=== PATIENT | male | born 1950 | race Two or more races ===

== ENCOUNTER 2023-11-01 13:43 | Emergency (ER) | payer OTHER, SELFPAY ==
[2023-11-01 13:46] VITALS: BP 154/74
--- NOTE | 2023-11-01 14:43 | ED.GENMED ---
History of Present Illness
General
Chief Complaint: Change in Mental Status
Source: patient
Time Seen by Provider: 11/01/23 14:27
History of Present Illness
History of Present Illness:
73yoM with a history of coronary artery disease s/p PCI, hypertension, hyperlipidemia, and type 2 diabetes presenting with his and son for evaluation of altered mental status. states that he has been irritable and angry over the past
several days. He started to become forgetful this morning. states that he forgot where his glasses were. At another point, patient put on his pants but then took them off and stated that the pants did not belong to him. He had a fall around
10 AM this morning on the steps. Fall was witnessed by who states that he struck his head. No reported loss of consciousness. Patient has been complaining of left-sided chest discomfort since the fall. states he had similar symptoms
about 1 to 2 months ago. He was seen at a hospital in [facility] at that time and was diagnosed with pneumonia. He underwent MRI brain which revealed age-related cortical atrophy as well as bilateral lacunar infarcts.
Phy Exam
General Physical Exam
General Presentation: well appearing and no apparent distress
General age: appears stated age
General Skin: warm and dry
General Habitus: normal
ENT Exam
ENT Exam: normocephalic (No external signs of head trauma. No cervical spine tenderness. )
Eye Exam
Eye Exam: PERRL
Cardiovascular Exam
Cardiovascular Exam: regular rate/rhythm
Pulmonary Exam
Pulmonary Exam: lungs clear, no respiratory distress, no crackles, no wheezing and other (+L sided chest wall tenderness. No crepitus or skin changes.)
Gastrointestinal Exam
Gastrointestinal Exam: non tender, soft and non distended
Neurological Exam
Neurological Exam: alert, no motor deficits and other (Oriented to person, place, time. )
Melvin Coma Scale
Eye Opening: Spontaneous
Verbal Response: Oriented
Motor Response: Obeys Commands
GCS Total Score: 15
Course
Orders/Labs/Results
Orders:
Orders
11/01/23 13:52
EKG [Electrocardiogram (*1)] Urgent
Reason for Study: Chest Pain
11/01/23 13:53
EKG- Treatment ONCE
11/01/23 14:42
CT Cervical Spine W/o Iv Contr Urgent
Comment:
Reason For Exam: Fall, AMS
CT Chest W/o Iv Contrast Urgent
Comment:
Reason For Exam: Fall, L sided chest pain
CT Head W/o Iv Contrast Urgent
Comment:
Reason For Exam: AMS, fall
11/01/23 14:47
Complete Blood Count/With Diff Urgent
Comprehensive Metabolic Panel Urgent
Free T4 Urgent
PTT Urgent
Prothrombin Time Urgent
TSH Reflex To Free T4 Urgent
Troponin I Urgent
11/01/23 16:08
Urinalysis Reflex To Culture Urgent
Date Specimen was Collected: 11/01/23
Time Specimen was Collected: 15:59
11/01/23 17:03
Acetaminophen [Tylenol] 1,000 mg PO NOW STA
Incentive Spirometry [Rx Incentive Spirometry] [RESP] Urgent
Frequency: q1h while awake
11/01/23 17:15
Lidocaine [Lidocaine 4% Patch] 1 patch TOPICAL DAILY
Apply Lidocaine patch(s) to:: L ribcage
Abnormal Lab Results
11/01/23
14:47
RBC 3.42 L 10^6/uL
(4.70-6.10)
Hgb 9.0 L g/dL
(13.0-18.0)
Hct 28.5 L %
(39.0-52.0)
MCH 26.3 L pg
(27.0-31.0)
MCHC 31.6 L g/dL
(33.0-37.0)
RDW 15.0 H %
(11.5-14.5)
Monocytes % 10.5 H %
(1.7-9.3)
Sodium 134 L mmol/L
(135-145)
Glucose 127 H mg/dl
(70-99)
Calcium 10.3 H mg/dl
(8.4-10.2)
TSH (Reflex) 0.39 L uIU/ml
(0.47-4.68)
11/01/23 14:47
11/01/23 14:47
Vital Signs
Initial and Last Documented VS:
Initial Vital Signs
Temp Pulse Resp BP Pulse Ox
98.9 F 68 18 154/74 100
11/01/23 13:46 11/01/23 13:46 11/01/23 13:46 11/01/23 13:46 11/01/23 13:46
Last Documented Vital Signs
Temp Pulse Resp BP Pulse Ox
98.9 F 71 12 159/73 100
11/01/23 13:46 11/01/23 17:00 11/01/23 17:00 11/01/23 17:00 11/01/23 15:45
MDM/Problems Addressed
Differential Diagnosis Includes:
73yoM presenting for memory loss that started this morning. Had a fall down steps this morning and now c/o L rib pain. +head strike but no LOC or headache. Patient is afebrile and hemodynamically stable. He is awake and alert with a GCS of 15.
There is reproducible tenderness to the left rib cage on exam. No other injuries appreciated. No focal neurologic deficits. Differential diagnosis includes but is not limited to: Rib fracture, pneumothorax, intracranial hemorrhage, electrolyte
abnormality, UTI, dementia
Initial ED plan: Check cardiac labs, TSH, UA, EKG, CT head, CT cervical spine, and CT chest.
*EKG
Interpreted by ED Provider?: Yes
EKG Intrepretation Date: 11/01/23
Heart Rate: 72
Rate: normal
Rhythm: sinus
[place]: normal axis
Interval: normal interval
QRS Pattern: normal QRS
Ischemia: no ischemia
*Critical Care Note
Total Time (30-74mins, 75-104mins- exclusive of procedures): Not Applicable
Update Note
Update Note:
Labs overall unremarkable. Hemoglobin 9, unclear baseline. No acute bleeding. TSH 0.39 but free T4 is normal. EKG shows normal sinus rhythm without ischemic changes and troponin is normal. CT chest shows two acute nondisplaced rib fractures. No
pneumo or hemothorax. No other injuries on imaging. Recommended admission given new onset memory loss and rib fractures. Patient is adamantly refusing admission at this time stating he does not like hospitals. He is oriented to person, place, and
time and was able to express his test results accurately. No grounds to take away patient's autonomy at this time. Discussed rib fracture treatment including pain control and incentive spirometry. Script for oxycodone given for breakthrough pain.
Advised f/u with his PCP and ED return precautions were discussed. He was discharged in stable condition with his and son.
ED Attending Note
-
Portions of this chart may have been created with voice recognition software.� Occasional wrong word or��sound alike� substitutions may have occurred due to the inherent limitations of voice recognition software.
Discharge Plan
Departure
Patient Disposition: Home (Routine Discharge)
Date of Disposition: 11/01/23
Time of Disposition: 17:00
Patient with high blood pressure during this ER visit?: Yes
Discharge Problem:
Memory loss, Fall down steps, Multiple fractures of ribs, left side, initial encounter for closed fracture
Instructions: Rib fractures in adults
Prescriptions:
New
oxycodone 5 mg tablet
2.5 mg PO Q6H PRN (Reason: Pain) Qty: 6 0RF
Referrals:
Rony Ackerman MD [Family Provider] -
Activity Restrictions/Additional Instructions:
Take Tylenol 650mg every 6 hours as needed for pain. Apply lidocaine patches daily (12 hours on, 12 hours off). Take oxycodone only as needed for severe breakthrough pain.
Use incentive spirometer every hour while awake.
Please follow-up with your family doctor on Friday. Return to the ER immediately with any new or worsening symptoms.
Interventions
Interventions:
*Risk Screen - Suicide Last Done: 11/01/23 14:50
*General Assessment Last Done: 11/01/23 13:46
*Neglect/Abuse Screening Last Done: 11/01/23 14:50
ED- Fall Risk Assessment Last Done: 11/01/23 14:50
*ED COVID-19 Vaccine History Last Done: 11/01/23 13:46
*Nursing Disposition Last Done: 11/01/23 17:19
ED- Pulmonary Assessment Last Done: 11/01/23 17:19
ED-Psychological Assessment Last Done: 11/01/23 17:19
ED- Neurological Assessment Last Done: 11/01/23 14:50
ED- Cardiac Assessment Last Done: 11/01/23 17:19
Discharge Date and Time
Discharge Date/Time: 11/01/23 17:20
Print Language: SOMALI
[2023-11-01 14:48] VITALS: BMI 29.0
[2023-11-01 14:56] LABS: % Basophils 0.4 % (0-2); % Eosinophils 1.8 % (0-6); % Immature Granulocytes 0.5 % (0-0.5); % Lymphocytes 24.2 % (20.5-51.1); % Monocytes 10.5 % (1.7-9.3); % Neutrophils 62.6 % (42.2-75.2); Absolute Eosinophils 0.1 10^3/uL (0-0.7); Absolute Lymphocytes 1.4 10^3/uL (1.2-3.4); Absolute Monocytes 0.6 10^3/uL (0.1-0.6); Absolute Neutrophils 3.6 10^3/uL (1.4-6.5); Hematocrit 28.5 % (39.0-52.0); Mean Corp Hgb Conc. 31.6 g/dL (33.0-37.0); Mean Corpuscular Hgb 26.3 pg (27.0-31.0); Mean Corpuscular Volume 83.3 fL (80.0-94.0); Nucleated Red Blood Cells % 0 % (-); Platelet Count 152 10^3/uL (130-400); Red Blood Cell Count 3.42 10^6/uL (4.70-6.10); White Blood Cell Count 5.7 10^3/uL (4.8-10.8)
[2023-11-01 15:07] VITALS: BP 142/74
[2023-11-01 15:20] LABS: ALT (SGPT) 28 U/L (0-50); AST (SGOT) 39 U/L (17-59); Albumin 4.2 g/dl (3.5-5.0); Alkaline Phosphatase 50 U/L (38-126); Blood Urea Nitrogen 15 mg/dl (9-20); Calcium 10.3 mg/dl (8.4-10.2); Carbon Dioxide 24 mmol/L (22-30); Chloride 102 mmol/L (98-107); Estimated Creatinine Clearance 45 ml/min; Glucose 127 mg/dl (70-99); Potassium 4.9 mmol/L (3.5-5.1); Sodium 134 mmol/L (135-145); Total Bilirubin 0.3 mg/dl (0.2-1.3); Total Protein 6.7 g/dl (6.3-8.2); eGFR 58.73
[2023-11-01 15:31] LABS: Troponin I < 0.012 ng/ml
[2023-11-01 15:43] LABS: TSH Reflex To Free T4 0.39 uIU/ml (0.47-4.68)
[2023-11-01 16:11] LABS: Free T4 1.23 ng/dl (0.78-2.19)
[2023-11-01 16:14] LABS: Urine Albumin Negative (Neg - Trace); Urine Bilirubin Negative (Negative); Urine Character Clear (Clear); Urine Color Yellow; Urine Glucose Negative (Negative); Urine Ketone Negative (Negative); Urine Leukocyte Negative (Negative); Urine Nitrite Negative (Negative); Urine Occult Blood Negative (Negative); Urine Specific Gravity 1.015 (<1.030); Urine Urobilinogen Negative (Neg - 1+)
[2023-11-01 17:00] VITALS: BP 159/73
[2023-11-01] MEDS: TYLENOL 1000 MG PO (17:10)
[2023-11-01] MEDS: LIDOCAINE 4% PATCH 1 PATCH TOPICAL (17:11)
== END 2023-11-01 17:20 | disposition home or self-care (01) ==
LOC: EMR 13:43
PROVIDERS: Physician Assistant; EMERGENCY PHYSICIAN Emergency Medicine; FAMILY PHYSICIAN Internal Medicine
DX: R41.82 Altered mental status, unspecified (principal); R41.3 Other amnesia; S22.42XA Multiple fractures of ribs, left side, initial encounter for closed fracture; W10.9XXA Fall (on) (from) unspecified stairs and steps, initial encounter; S09.90XA Unspecified injury of head, initial encounter; R07.9 Chest pain, unspecified
CPT/HCPCS: 99285; 70450; 71250; 72125; 80053; 81003; 84439; 84443; 84484; 85025; 85610; 85730; 93005

== ENCOUNTER → 2024-05-12 08:56 | Outpatient (REF) | payer OTHER, SELFPAY | LOC: HWRCS 08:56 | PROVIDERS: ATTENDING PHYSICIAN Internal Medicine Cardiovascular Disease; FAMILY PHYSICIAN Student in an Organized Health Care Education/Training Program | DX: Z95.5 Presence of coronary angioplasty implant and graft (principal); Z86.79 Personal history of other diseases of the circulatory system; R06.02 Shortness of breath; E78.5 Hyperlipidemia, unspecified | CPT/HCPCS: 93306 ==